=== PATIENT | female | born 1945 | race Asian ===

== ENCOUNTER → 2016-09-13 | Outpatient (CLI) | payer OTHER ==
[~2016-09-13] MED LIST: AMOX500T PO; ASCO500T2 PO; ATOR10TA PO; CEFD300C PO; ESOM40CA PO; METH4TAB2 PO; MUPI15CR TP; OLME40TA12 PO; SULF1TAB24 PO
--- NOTE | 2016-09-13 10:41 | RAD ---
DEXA scan 09/13/2016 Clinical history: Risk factors for osteoporosis. Postmenopausal female. Technique: DEXA of the lumbar spine and the right hip was performed. FINDINGS: The mean bone mineral density of the lumbar spine is 0.948 g/sq cm. This corresponds to a T score of -1.9. This is consistent with moderate to severe osteopenia. The mean bone mineral density of right hip is 0.839 g/sq cm. This corresponds to a T score of -1.4. This is consistent with mild osteopenia. IMPRESSION: 1. Mild osteopenia of the right hip. 2. Moderate to severe osteopenia of the lumbar spine. According to World Health Organization, the definition of osteoporosis and osteopenia for women is as follows: Normal = T score at or above -1.0 SD. Osteopenia = T score between -1.0 and -2.5 SD. Osteoporosis = T score at or below -2.5 SD.
== END | disposition home or self-care (01) ==
LOC: DXRAD 09:17
PROVIDERS: ATTEND General Practice
DX: M81.0 Age-related osteoporosis without current pathological fracture (principal); Z78.0 Asymptomatic menopausal state
CPT/HCPCS: 77080

== ENCOUNTER → 2016-10-30 | Outpatient (CLI) | payer OTHER ==
--- NOTE | 2016-10-30 12:14 | RAD ---
Examination: 3 views of the left shoulder History: History of acute left shoulder pain for one month, injury while reaching for something Comparison: None available Findings: The humerus head is within the glenoid. Mild degenerative changes identified in the acromioclavicular joint, glenohumeral joints. There is no acute fracture identified. Impression: Mild degenerative changes acromioclavicular joint, glenohumeral joints.
== END | disposition home or self-care (01) ==
LOC: DXRADRC 11:34
PROVIDERS: ATTEND Nurse Practitioner Family
DX: M19.012 Primary osteoarthritis, left shoulder (principal)
CPT/HCPCS: 73030

== ENCOUNTER → 2017-03-09 | Outpatient (CLI) | payer OTHER ==
--- NOTE | 2017-03-09 09:59 | RAD ---
Chest, 2 views, 03/09/2017: History: Chest congestion The heart size and pulmonary vascularity are normal. No pulmonary structures are seen. There is no evidence of pleural fluid. IMPRESSION: No acute cardiopulmonary abnormality is detected.
== END | disposition home or self-care (01) ==
LOC: PMG 09:14
PROVIDERS: ATTEND Physician Assistant Medical
DX: R09.89 Other specified symptoms and signs involving the circulatory and respiratory systems (principal)
CPT/HCPCS: 71046

== ENCOUNTER → 2017-08-23 | Outpatient (CLI) | payer OTHER ==
--- NOTE | 2017-08-23 10:34 | RAD ---
INDICATION: Bilateral knee pain. TECHNIQUE: 2 views of each knee are submitted for review. No comparison is available. FINDINGS: There is no fracture or dislocation. There is no joint space narrowing. There is no joint effusion or soft tissue swelling. On the right, there is minimal spurring in the patellofemoral compartment. On the left, there is minimal spurring in the lateral compartment and patellofemoral compartment. IMPRESSION: Minimal degenerative changes in both knees. There is no evidence of an acute fracture or dislocation. Electronically signed by: Rayray Lugo MD (08/23/2017 10:31 AM) [facility]
--- NOTE | 2017-08-23 10:41 | RAD ---
INDICATION: Low back pain. TECHNIQUE: 3 views of the lumbosacral spine are submitted for review. Comparison is from July 19, 2015. FINDINGS: There is mild wedging of the L1 and L2 vertebral bodies, without definite acute fracture line. Vertebral body height otherwise is maintained. There is no malalignment. There is mild narrowing of the interspace at L3-L4 most notably. There is endplate spurring which is noted from L3-L4 through L5-S1. Facet hypertrophy is greatest at L4-L5 and L5-S1. There is atheromatous disease in the abdominal aorta. IMPRESSION: 1. Slight wedging of L1 and L2 is similar to prior, there is no evidence of an acute fracture. 2. There are degenerative changes which are greatest at L4-L5 and L5-S1. Electronically signed by: Rayray Lugo MD (08/23/2017 10:39 AM) [facility]
== END | disposition home or self-care (01) ==
LOC: DXRAD 10:10
PROVIDERS: ATTEND Physician Assistant
DX: M47.896 Other spondylosis, lumbar region (principal); M47.897 Other spondylosis, lumbosacral region; I70.0 Atherosclerosis of aorta; M48.061 Spinal stenosis, lumbar region without neurogenic claudication
CPT/HCPCS: 72100; 73560

== ENCOUNTER → 2017-09-24 | Outpatient (CLI) | payer OTHER ==
--- NOTE | 2017-09-24 16:50 | RAD ---
EXAM: Thyroid sonogram. HISTORY: Thyroid nodule. TECHNIQUE: Sonographic imaging of the thyroid was performed. COMPARISON: 06/24/2013. FINDINGS: The right thyroid lobe measures 5.0 x 1.3 x 2.0 cm. The left thyroid lobe measures 4.3 x 1.3 x 1.9 cm. The isthmus measures 1.8 mm. There is a mixed solid and cystic nodule along the right aspect of the thyroid isthmus measuring 5 x 5 x 3 mm. There are several colloid cysts within the right thyroid lobe, the largest of which measures 6 x 6 x 4 mm. There is a complex cyst within the upper mid left thyroid lobe measuring 3 x 3 x 2 mm. The thyroid parenchyma is diffusely heterogeneous. IMPRESSION: 1. Several small benign thyroid cysts, the largest of which measures 6 mm on the right. 2. Mixed solid and cystic right thyroid lesion measuring 5 mm. This is likely benign based on size. 3. Note is made that the previously demonstrated solid left thyroid nodule measuring 7 mm is not discrete on the current exam. 4. Diffusely heterogeneous thyroid parenchyma. This can be seen as a sequela of prior thyroiditis. Electronically signed by: Dennise Sterling MD (09/24/2017 4:47 PM) [id number]
== END | disposition home or self-care (01) ==
LOC: US 13:43
PROVIDERS: ATTEND Physician Assistant
DX: E04.1 Nontoxic single thyroid nodule (principal)
CPT/HCPCS: 76536

== ENCOUNTER → 2018-09-25 | Outpatient (CLI) | payer OTHER ==
--- NOTE | 2018-09-25 14:23 | RAD ---
Indication: Screening bilateral ultrasound the breast. Patient refuses mammogram. TECHNIQUE: Bilateral whole breast ultrasound. COMPARISON: Previous ultrasound from 2017. FINDINGS: No solid or cystic lesion seen in the interrogated bilateral breasts. Skin is normal in thickness. Breast density category B: There are scattered areas of fibroglandular densities. IMPRESSION: No sonographic abnormality seen. Clinically correlate with physical exam. Electronically signed by: Jose Ferris DO (09/25/2018 2:20 PM) [facility]
--- NOTE | 2018-09-25 15:12 | RAD ---
EXAM: Dual energy x-ray absorptiometry (DEXA). HISTORY: Postmenopausal female presents for osteoporosis screening. COMPARISON: None. TECHNIQUE: Dual energy x-ray absorptiometry of the lumbar spine and right hip was performed. Calculation of bone mineral density based on standard deviations above or below the expected young adult normal value (T-score) was completed. FINDINGS: The average bone mineral density in the 1st through 4th lumbar vertebrae is 0.930 g/cmxcm, corresponding with a T-score of -2.1. The average total bone mineral density in the right hip is 0.764 g/cmxcm, corresponding with a T-score of -1.6. The bone mineral density localized to the right femoral neck corresponds with a T-score of -2.5. IMPRESSION: 1. Osteopenia measured at the lumbar spine and for the total right hip. 2. Borderline osteoporosis measured at the right femoral neck. Note: Definitions established by the World Health Organization: 1. Normal: T-score is -1.0 or above. 2. Osteopenia: T-score is between -1.0 and -2.5 . 3. Osteoporosis: T-score is -2.5 or below. Electronically signed by: Dennise Sterling MD (09/25/2018 3:10 PM) [id number]
== END | disposition home or self-care (01) ==
LOC: US 13:34
PROVIDERS: ATTEND Physician Assistant
DX: M81.0 Age-related osteoporosis without current pathological fracture (principal); M85.88 Other specified disorders of bone density and structure, other site; R92.8 Other abnormal and inconclusive findings on diagnostic imaging of breast; N95.9 Unspecified menopausal and perimenopausal disorder
CPT/HCPCS: 76641; 77080

== ENCOUNTER → 2019-01-08 | Outpatient (CLI) | payer OTHER ==
--- NOTE | 2019-01-08 15:04 | RAD ---
EXAM: Right shoulder, 3 views. HISTORY: Pain. COMPARISON: 10/30/2016. FINDINGS: 3 views of the right shoulder obtained. There is no fracture, dislocation or subluxation. There is degenerative subchondral sclerosis involving the acromioclavicular joint. IMPRESSION: No acute osseous finding. Electronically signed by: Dennise Sterling MD (01/08/2019 3:01 PM) [facility]
== END | disposition home or self-care (01) ==
LOC: PMG 13:47
PROVIDERS: ATTEND Physician Assistant
DX: M25.511 Pain in right shoulder (principal)
CPT/HCPCS: 73030

== ENCOUNTER → 2019-01-24 | Outpatient (CLI) | payer OTHER ==
--- NOTE | 2019-01-24 17:31 | RAD ---
Clinical indications: Thyroid nodules. COMPARISON: September 24, 2017. Findings: The longitudinal and AP and transverse dimensions of the right lobe of the thyroid gland are 5.2 cm x 1.3 cm x 1.7 cm respectively. There is a small hypoechoic nodule with sound through-transmission which may represent a complex cyst within the medial mid to lower aspect of the right lobe measuring up to 7 mm in size. This measured 5 mm previously. There is a lower pole cyst measuring 6 mm. This measured 6 mm previously. Smaller colloid cysts are seen within the right lobe. The longitudinal and AP and transverse dimensions of the left lobe are 4.4 cm x 1.1 cm x 1.5 cm respectively. There is a small 5 mm nodule within the mid aspect of the left lobe. In retrospect, this could be seen previously and is unchanged. Small cyst of the medial aspect of the left lobe is seen. The isthmus is homogeneous in appearance and measures 5 mm in thickness. . Impression: Small benign-appearing bilateral thyroid nodules which have not changed significantly. Electronically signed by: [place] Sr MD (01/24/2019 5:28 PM) [facility]
== END | disposition home or self-care (01) ==
LOC: US 10:30
DX: E04.2 Nontoxic multinodular goiter (principal)
CPT/HCPCS: 76536

== ENCOUNTER → 2020-12-08 | Outpatient (CLI) | payer MEDICARE ==
[~2020-12-08] MED LIST changes: -ASCO500T2 PO; +ASCO500T4 PO
--- NOTE | 2020-12-08 11:14 | RAD ---
INDICATION : Routine Screening. COMPARISON: May 2011 TECHNIQUE: Standard mammogram screening views of the bilateral breasts were obtained. CAD was utilize d. FINDINGS: The breasts are scattered density. No definite suspicious mass. Scattered calcifications are again s een. IMPRESSION: BI-RADS Category 2: Benign findings. The patient was placed into the recall system with a suggested recall date for follow up imaging. Mammography is the most sensitive method for finding small breast cancers, but it does not detect the m all and is not a substitute for careful clinical examination. A negative mammogram does not negate a clinically suspicious finding and should not result in delay in biopsying a clinically suspicious abnormality. Electronically signed by: Glenn Garcia MD (12/08/2020 11:11 AM) [id number]
--- NOTE | 2020-12-08 13:17 | RAD ---
EXAMINATION: US THYROID, 12/08/2020 8:47 AM CLINICAL INDICATION: Nodule TECHNIQUE: Grayscale and color Doppler sonographic images of the thyroid are submitted for interpreta tion. COMPARISON: 01/24/2019 FINDINGS: The right thyroid lobe measures 5.2 x 1.5 x 1.4 cm. The left thyroid lobe measures 2.5 x 1 .5 x 1.1 cm. The isthmus measures 3 mm. Background parenchyma is homogeneous with normal echogenicity . No hyperemia. Nodule #1: Location: Mid right thyroid lobe Size: 0.5 x 0.3 cm Composition: Spongiform Echogenicity: n/a Margins: Smooth Shape: Wider than tall Echogenic foci: None TI-RADS: 1 Nodule #2: Location: Inferior right thyroid lobe Size: 0.7 x 0.7 x 0.5 cm Composition: Cystic Echogenicity: Anechoic Margins: Smooth Shape: Wider than tall Echogenic foci: Coarse or peripheral calcifications TI-RADS: 2 Additional tiny scattered anechoic cysts are seen bilaterally and unchanged. IMPRESSION: Unchanged appearance of the thyroid gland with benign 5 mm spongiform cyst in the right thyroid lobe, 7 mm cyst in the inferior right thyroid lobe with coarse peripheral calcifications, and additional scattered tiny cysts bilaterally. Electronically signed by: Erika Puente MD (12/08/2020 1:15 PM) [id number]
== END ==
LOC: US 08:42
PROVIDERS: ATTEND Physician Assistant
DX: Z12.31 Encounter for screening mammogram for malignant neoplasm of breast (principal); E04.1 Nontoxic single thyroid nodule
CPT/HCPCS: 76536; 77067